=== PATIENT | female | born 1975 | race Caucasian/White ===

== ENCOUNTER 2021-09-12 16:49 | Emergency (ER) | payer SELFPAY ==
[~2021-09-12] VITALS: Ht 152.4 cm; Wt 102.1 kg
[2021-09-12 17:01] VITALS: BP 133/80
--- NOTE | 2021-09-12 17:43 | NUR ---
PT AMBULATED TO BED 7
--- NOTE | 2021-09-12 17:48 | NUR ---
45 Y/O FEMALE BIB SELF C/O CHEST PAIN RATED 8/10 WHICH RADIATES TO L ARM X 3 DAYS. PT STATES SHE HAS EXERTIONAL SOB. PT DENIES AGGREVATING OR ALLEVIATING FACTORS. PT DENIES FEVER OR CHILLS. PT DENIES NAUSEA/VOMITING. PT IS ABLE TO SPEAK IN COMPLETE SENTENCES. PT ALERT AND ORIENTED X4. BED IN LOWEST POSITION. BED RAIL X 1. PMH: DENIES MEDS: DENIES NKA
--- NOTE | 2021-09-12 18:30 | NUR ---
DR. HODGES BEDSIDE EVALUATING PT
[2021-09-12] MEDS ORDERED: KETOROLAC 30 MG/ML VIAL IM ONE (18:40)
[2021-09-12] MEDS ORDERED: diazePAM 5 MG TAB PO ONE (18:40)
--- NOTE | 2021-09-12 19:00 | NUR ---
PT PROVIDED WITH WARM BLANKET
--- NOTE | 2021-09-12 19:17 | NUR ---
XRAY AT BEDSIDE
--- NOTE | 2021-09-12 19:23 | NUR ---
Patient appears to be resting comfortably in bed. Vital Signs within normal limits. Respirations even and unlabored.
--- NOTE | 2021-09-12 19:24 | NUR ---
Pt report given to DAVIDE DEL TORO. Transfer of care at this time.
[2021-09-12] MEDS ORDERED: NAPR-54 PO (19:36)
[2021-09-12 20:08] VITALS: BP 116/76
--- NOTE | 2021-09-12 20:08 | NUR ---
Patient discharged with v/s stable. Written and verbal after care instructions given and explained. Patient alert, oriented and verbalized understanding of instructions. Ambulatory with steady gait. All questions addressed prior to discharge. ID band removed. Patient advised to follow up with PMD. Rx of NAPROSYN given. Opportunity to ask questions provided and answered.
== END 2021-09-12 20:08 | disposition home or self-care (01) ==
LOC: MED 16:49
DX: R07.89 Other chest pain (principal); J45.909 Unspecified asthma, uncomplicated; Z79.899 Other long term (current) drug therapy
CPT/HCPCS: 71045; 93005; 96372; 99283; J1885; Q0092